=== PATIENT | female | born 1950 | race Hispanic/Latino ===

== ENCOUNTER 2020-11-30 14:17 | Emergency (ER) | payer MEDICARE ==
[~2020-11-30] VITALS: Ht 127 cm; Wt 44.5 kg
[2020-11-30] MEDS ORDERED: SODIUM CHLORIDE 0.9% 1000ML 1,000 ML IV SCH (16:30)
[2020-11-30] MEDS ORDERED: SODIUM CHLORIDE 0.9% 1000ML 1,000 ML ONE (16:37)
== END 2020-11-30 17:45 | disposition home or self-care (01) ==
LOC: FSED 14:37
DX: R07.9 Chest pain, unspecified (principal); I10 Essential (primary) hypertension; E78.5 Hyperlipidemia, unspecified
CPT/HCPCS: 71046; 80053; 81003; 82553; 83880; 84484; 85025; 85379; 93005; 99284; J7030